=== PATIENT | female | born 1960 | race Caucasian/White ===

== ENCOUNTER 2017-03-14 14:51 | Inpatient (IN) | payer BC ==
[~2017-03-14] VITALS: Ht 160 cm; Wt 55.8 kg
[2017-03-14] MEDS ORDERED: QUETIAPINE FUMA25 MG ORAL (14:56)
[2017-03-14 14:59] VITALS: BP 87/59
[2017-03-14] MEDS ORDERED: Naloxone 1mg/ml 2ml IVP ONE (15:30)
[2017-03-14 16:17] LABS: MEAN CORPUSCULAR HEMOGLOBIN 29.2 PG (27.0-31.0); MEAN CORPUSCULAR HGB CONC 29.9 G/DL (32.0-36.0); MEAN CORPUSCULAR VOLUME 98 FL (80-99); MEAN PLATELET VOLUME 6.3 FL (6.5-10.1); PLATELET COUNT 199 K/UL (150-450); RED BLOOD COUNT 4.48 M/UL (4.20-5.40); RED CELL DISTRIBUTION WIDTH 13.5 % (11.6-14.8); WHITE BLOOD COUNT 16.8 K/UL (4.8-10.8)
[2017-03-14 16:19] LABS: LYMPHOCYTES % (AUTO) 3.4 % (20.0-45.0); MONOCYTES % (AUTO) 6.3 % (1.0-10.0); NEUTROPHILS % (AUTO) 89.5 % (45.0-75.0)
[2017-03-14 16:20] LABS: BASOPHILS % (AUTO) 0.7 % (0.0-2.0); EOSINOPHILS % (AUTO) 0.1 % (0.0-3.0)
[2017-03-14 16:30] LABS: ALANINE AMINOTRANSFERASE 93 U/L (12-78); ANION GAP 13 mmol/L (5-15); ASPARTATE AMINO TRANSFERASE 107 U/L (15-37); CALCIUM 8.2 MG/DL (8.5-10.1); CARBON DIOXIDE 24 MMOL/L (21-32); CHLORIDE 103 MMOL/L (98-107); CREATININE 1.7 MG/DL (0.55-1.30); GLOMERULAR FILTRATION RATE 31.3 mL/min (>60); POTASSIUM 3.6 MMOL/L (3.5-5.1); SODIUM 140 MMOL/L (136-145); TOTAL PROTEIN 7.1 G/DL (6.4-8.2)
[2017-03-14 16:32] LABS: ALCOHOL < 3 mg/dL
[2017-03-14 16:33] LABS: ACETAMINOPHEN < 2 MCG/ML (10-30)
--- NOTE | 2017-03-14 17:01 | Diagnostic Imaging Report ---
Indication: The mental status Technique: Contiguous 5 mm thick transaxial imaging of the head obtained in a Siemens Sensation [address] scanner. Soft tissue and bone windows generated. Automatic Exposure Control was utilized. Total Dose length Product (DLP): [address] Dose Index Volume (CTDIvol): 70.38, 0.15 mGy Comparison: none Findings: The size and configuration of the cortical sulci, basal cisterns, and ventricles are within normal limits for age. There is no mass effect, midline shift, or edema identified. There is no evidence of acute hemorrhage or abnormal intra-axial or extra-axial fluid collections. The bones and soft tissues are unremarkable. Impression: No mass effect, edema or acute bleed. The CT scanner at [facility] is accredited by the [employer] and the scans are performed using dose optimization techniques as appropriate to a performed exam including Automatic Exposure control.
--- NOTE | 2017-03-14 17:12 | Emergency Room Report ---
History of Present Illness General Chief Complaint: Overdose Source: Patient, EMS Present Illness HPI 56-year-old female to ED for evaluation. Per EMS patient was found down on the street and green [employer] specialist 911. Friend told in the one that patient used heroin today. Patient given Narcan x2. Upon arrival patient is more awake but still lethargic. Admits to heroin use. Denies any other drug use. Denies any chest pain or shortness of breath. Denies any headache. No other aggravating relieving factors. Denies any other associated symptoms Allergies: Coded Allergies: No Known Allergies (Unverified , 03/14/17) Patient History Past Medical History: none Past Surgical History: none Pertinent Family History: none Social History: Reports: drug use, Denies: smoking, alcohol use Now: No Immunizations: UTD Reviewed Nursing Documentation: PMH: Agreed, PSxH: Agreed Nursing Documentation-PMH Past Medical History: No History, Except For History Of Psychiatric Problem: Yes Review of Systems All Other Systems: negative except mentioned in HPI Physical Exam Vital Signs Date Time Temp Pulse Resp B/P (MAP) Pulse Ox O2 Delivery O2 Flow Rate FiO2 03/14/17 14:43 96.3 82 16 146/94 99 Room Air 03/14/17 14:59 15.0 Sp02 EP Interpretation: reviewed, normal General Appearance: GCS 15, non-toxic, lethargic Head: normocephalic, atraumatic Eyes: bilateral eye normal inspection, bilateral eye PERRL ENT: hearing grossly normal, normal pharynx, no angioedema, normal voice Neck: full range of motion, supple/symm/no masses Respiratory: chest non-tender, lungs clear, normal breath sounds, speaking full sentences Cardiovascular #1: regular rate, rhythm, no edema Cardiovascular #2: 2+ carotid (R), 2+ carotid (L), 2+ radial (R), 2+ radial (L) , 2+ dorsalis pedis (R), 2+ dorsalis pedis (L) Gastrointestinal: normal bowel sounds, non tender, soft, non-distended, no guarding, no rebound Rectal: deferred Genitourinary: normal inspection, no CVA tenderness Musculoskeletal: back normal, gait/station normal, normal range of motion, non- tender Neurologic: other - lethargic Psychiatric: other Reflexes: 3+ bicep (R), 3+ bicep (L), 3+ tricep (R), 3+ tricep (L), 3+ knee (R) , 3+ knee (L) Skin: normal color, no rash, warm/dry, well hydrated Lymphatic: no adenopathy Medical Decision Making Diagnostic Impression: Primary Impression: Drug overdose Qualified Codes: T50.901A - Poisoning by unspecified drugs, medicaments and biological substances, accidental (unintentional), initial encounter ER Course Hospital Course 56-year-old female presents to ED with altered mental status. found down, admitted to heroin Differential diagnoses include: overdose, alcohol toxicity, intracranial injury Clinical course She placed on stretcher. On electronic device monitor. After initial history and physical ordered labs, IV fluids, narcan, CT brain. Labs reviewed-electrolytes okay, noted leukocytosis, hemoglobin/hematocrit stable, Utox + multiple substances CT brain shows no acute pathology Patient is more awake but remains lethargic. O2 saturations low on room air, requiring oxygen. I do not believe patient can be safely discharged at this time case discussed with Dr. Mcdonald and he agreed to accept the patient to his service for further care and support i. I feel this is a highly complex case requiring extensive working including EKG/Rhythm strip, Xray/CT/US, Blood/urine lab work, repeat exams while in ED, and administration of strong opiates/narcotics for pain control, admission to hospital or close patient follow up. Diagnosis - drug overdose Admitted to telemetry in serious condition Labs Test 03/14/17 15:45 03/14/17 16:50 White Blood Count 16.8 K/UL (4.8-10.8) Red Blood Count 4.48 M/UL (4.20-5.40) Hemoglobin 13.1 G/DL (12.0-16.0) Hematocrit 43.8 % (37.0-47.0) Mean Corpuscular Volume 98 FL (80-99) Mean Corpuscular Hemoglobin 29.2 PG (27.0-31.0) Mean Corpuscular Hemoglobin Concent 29.9 G/DL (32.0-36.0) Red Cell Distribution Width 13.5 % (11.6-14.8) Platelet Count 199 K/UL (150-450) Mean Platelet Volume 6.3 FL (6.5-10.1) Neutrophils (%) (Auto) 89.5 % (45.0-75.0) Lymphocytes (%) (Auto) 3.4 % (20.0-45.0) Monocytes (%) (Auto) 6.3 % (1.0-10.0) Eosinophils (%) (Auto) 0.1 % (0.0-3.0) Basophils (%) (Auto) 0.7 % (0.0-2.0) Sodium Level 140 MMOL/L (136-145) Potassium Level 3.6 MMOL/L (3.5-5.1) Chloride Level 103 MMOL/L (98-107) Carbon Dioxide Level 24 MMOL/L (21-32) Anion Gap 13 mmol/L (5-15) Blood Urea Nitrogen 19 mg/dL (7-18) Creatinine 1.7 MG/DL (0.55-1.30) Estimat Glomerular Filtration Rate 31.3 mL/min (>60) Glucose Level 140 MG/DL (74-106) Calcium Level 8.2 MG/DL (8.5-10.1) Total Bilirubin 0.3 MG/DL (0.2-1.0) Aspartate Amino Transf (AST/SGOT) 107 U/L (15-37) Alanine Aminotransferase (ALT/SGPT) 93 U/L (12-78) Alkaline Phosphatase 83 U/L (46-116) Total Protein 7.1 G/DL (6.4-8.2) Albumin 3.6 G/DL (3.4-5.0) Globulin 3.5 g/dL Albumin/Globulin Ratio 1.0 (1.0-2.7) Salicylates Level 1.8 ug/mL (2.8-20) Acetaminophen Level < 2 MCG/ML (10-30) Serum Alcohol < 3 mg/dL Urine Opiates Screen Negative (NEGATIVE) Urine Barbiturates Screen Negative (NEGATIVE) Phencyclidine (PCP) Screen Negative (NEGATIVE) Urine Amphetamines Screen Positive (NEGATIVE) Urine Benzodiazepines Screen Positive (NEGATIVE) Urine Cocaine Screen Positive (NEGATIVE) Urine Marijuana (THC) Screen Negative (NEGATIVE) CT/MRI/US Diagnostic Results CT/MRI/US Diagnostic Results : Imaging Test Ordered: CT head Impression no acute process Last Vital Signs Date Time Temp Pulse Resp B/P (MAP) Pulse Ox O2 Delivery O2 Flow Rate FiO2 03/14/17 14:59 78 22 Non-Rebreather 15.0 03/14/17 14:59 87/59 100 03/14/17 14:43 96.3 Status: improved Disposition: HOME, SELF-CARE Condition: Stable Referrals: NOT CHOSEN IPA/,REFERRING (PCP) BUZZ ARECHIGA M.D. Mar 14, 2017 17:12
[2017-03-14 17:23] VITALS: BP 125/80
[2017-03-14] MEDS ORDERED: Albuterol/Ipratropium 3ml neb HHN PRN (19:30)
[2017-03-14] MEDS ORDERED: Promethazine/Codeine 5ml UD ORAL PRN (19:30)
[2017-03-14] MEDS ORDERED: Miralax 17gm pkt ORAL PRN (19:30)
[2017-03-14] MEDS ORDERED: Mylanta II UD 30ml ORAL PRN (19:30)
[2017-03-14] MEDS ORDERED: Nitroglycerin Subl 0.4mg tab SL PRN (19:30)
[2017-03-14 19:55] VITALS: BP 111/76
[2017-03-14 20:00] VITALS: BP 135/74
[2017-03-14] MEDS ORDERED: Cefepime HCl 1 GM in D5W 55 ML IV SCH (21:00)
[2017-03-14 21:01] VITALS: BP 114/72
[2017-03-14 21:25] VITALS: BP 124/86
[2017-03-14] MEDS ORDERED: Vancomycin 1250mg/D5W 250ml 250 ML IVPB SCH (21:30)
[2017-03-14] MEDS: Heparin 5000 units/ml inj SUBQ SCH (21:41)
[2017-03-15] VITALS: BP 94/66
[2017-03-15] MEDS ORDERED: SEROQUEL200 MG ORAL (01:26)
[2017-03-15 04:00] VITALS: BP 102/60
[2017-03-15 08:00] VITALS: BP 116/60
[2017-03-15 08:51] LABS: BASOPHILS % (AUTO) 0.5 % (0.0-2.0); EOSINOPHILS % (AUTO) 1.6 % (0.0-3.0); LYMPHOCYTES % (AUTO) 23.4 % (20.0-45.0); MEAN CORPUSCULAR HEMOGLOBIN 30.1 PG (27.0-31.0); MEAN CORPUSCULAR HGB CONC 31.3 G/DL (32.0-36.0); MEAN CORPUSCULAR VOLUME 96 FL (80-99); MEAN PLATELET VOLUME 6.6 FL (6.5-10.1); MONOCYTES % (AUTO) 9.1 % (1.0-10.0); NEUTROPHILS % (AUTO) 65.3 % (45.0-75.0); PLATELET COUNT 188 K/UL (150-450); RED BLOOD COUNT 3.58 M/UL (4.20-5.40); RED CELL DISTRIBUTION WIDTH 13.3 % (11.6-14.8); WHITE BLOOD COUNT 8.5 K/UL (4.8-10.8)
[2017-03-15] MEDS: Heparin 5000 units/ml inj SUBQ SCH (09:00)
[2017-03-15 09:04] LABS: ANION GAP 9 mmol/L (5-15); CALCIUM 8.2 MG/DL (8.5-10.1); CARBON DIOXIDE 27 MMOL/L (21-32); CHLORIDE 103 MMOL/L (98-107); CREATININE 0.9 MG/DL (0.55-1.30); GLOMERULAR FILTRATION RATE > 60 mL/min (>60); PHOSPHORUS 2.8 MG/DL (2.5-4.9); POTASSIUM 3.6 MMOL/L (3.5-5.1); SODIUM 139 MMOL/L (136-145)
--- NOTE | 2017-03-15 11:25 | Consultation ---
Consult Note Consult Note id dic # [id number] SUSANA ENRIQUEZ M.D. Mar 15, 2017 11:25
[2017-03-15] MEDS ORDERED: NS 275ml ONE (11:31)
[2017-03-15] MEDS ORDERED: Tubing IV Secondary IV ONE (11:31)
[2017-03-15] MEDS ORDERED: Vancomycin 1gm/D5W 275ml IVPB SCH ×2 (21:00)
--- NOTE | 2017-03-15 22:45 | Consultation ---
DATE OF CONSULTATION: 03/15/2017 INFECTIOUS DISEASES CONSULTATION CONSULTING PHYSICIAN: Emerson Lopez M.D. REFERRING PHYSICIAN: Monica Irizarry M.D. REASON FOR CONSULTATION: Evaluation of the patient for leukocytosis, possible sepsis, and antibiotic management. HISTORY OF PRESENT ILLNESS: The patient is a 56-year-old female, who was brought to this medical center due to heroin overdose. The patient's mental status has improved. Infectious Disease consultation has been requested for further evaluation of the patient's antibiotic management. PAST MEDICAL HISTORY: 1. History of heart attack in 2013. 2. History of hepatitis C that was treated according to the patient. ALLERGIES: No known drug allergies. MEDICATIONS: Intravenous vancomycin and cefepime. SOCIAL HISTORY: Significant for abusing heroin and history of IV drug abuse. FAMILY HISTORY: Noncontributory. REVIEW OF SYSTEMS: HEENT: No recent change in vision or hearing. PULMONARY: No cough or shortness of breath. CARDIOVASCULAR: No chest pain or palpitations. GASTROINTESTINAL/ABDOMEN: No nausea or vomiting. GENITOURINARY: No dysuria. PHYSICAL EXAMINATION: VITAL SIGNS: Temperature 98, pulse 856, respiratory rate 18, and blood pressure 116/60. HEENT: No pale conjunctivae. No icterus. NECK: No lymphadenopathy. CHEST: Clear. HEART: S1 and S2. ABDOMEN: Soft and nontender. EXTREMITIES: No cyanosis at this time. NEUROLOGIC: Awake and alert. LABORATORY AND DIAGNOSTIC DATA: Labs at the time of admission, the patient's white count was 16.8, now white count is 8.5, hemoglobin 10.8, and platelets 188. BUN 15 and creatinine 0.9. AST and ALT mildly elevated. Head CT scan is unremarkable. Sputum culture is pending. ASSESSMENT: 1. Leukocytosis due to acute stress. 2. History of intravenous drug abuse, however, the patient has no fever to indicate any evidence of bacteremia. 3. Mild transaminitis, rule out hepatitis C or hepatitis B. 4. History of human immunodeficiency virus test negative in the past. 5. History of hepatitis C treatment with clearance. PLAN: 1. We will discontinue all antibiotics. 2. Monitor CBC. 3. Monitor BMP. 4. We will send blood culture. 5. We will check her hepatitis panel and hepatitis C PCR. 6. Based on the patient's clinical course and labs, we will do further recommendations. Thank you, Dr. Irizarry, for allowing me to participate in the care of this patient. I will follow the patient with your during this hospitalization. Emerson Lopez M.D. DR: MARYSOL JOB#: [id number] CC:
--- NOTE | 2017-03-18 10:54 | Discharge Summary ---
Discharge Summary Hospital Course Date of Admission Mar 14, 2017 at 18:10 Date of Discharge Mar 15, 2017 at 12:20 Admitting Diagnosis overdose/dehydration HPI Millie Negron is a 56 year old female who was admitted on Mar 14, 2017 at 18 :10 for Overdose,Dehydration Hospital Course dc summary #[id number] Discharge Discharge Disposition Patient eloped Discharge Diagnoses: Discharge Instructions Discharge Instructions Special Instructions I have been assigned to complete a D/C Summary on this account. I was not involved in the patient management Jenna Lao NP (Vanchtein) Mar 18, 2017 10:53
--- NOTE | 2017-03-18 20:46 | Discharge Summary 2 SIG ---
DATE OF ADMISSION: 03/14/2017 DATE OF ELOPEMENT: 03/15/2017 REASON FOR ADMISSION: 56-year-old female was found unresponsive on the street. Paramedics were called. Friend informed paramedics that the patient was using heroin that day. The patient was given Narcan x2. Upon arrival to ED, the patient was more awake, but still lethargic. The patient admitted to heroin use. She denied chest pain or shortness of breath. She denied headache. The patient without any significant past medical history. Workup in the emergency room revealed WBC -16.8, BUN -19, and creatinine -1.7. AST -107 and ALT -93. CT of the head revealed no acute intracranial pathology. Urine toxicology screen was positive for amphetamine, benzodiazepine, and cocaine. Serum alcohol level, Tylenol level and salicylate levels were all within normal limits. The patient was admitted for drug overdose and leukocytosis. HOSPITAL COURSE: The patient was admitted. The patient was started on the IV hydration. The patient was started on empiric antibiotic due to leukocytosis. ID consult was requested. Mental status was closely monitored. Renal parameters and electrolytes were closely monitored. Nephrotoxics were avoided. ID seen and evaluated the patient and stated that leukocytosis was likely secondary to acute stress. He discontinued all antibiotics. Next day, renal parameters down to normal. Leukocytosis resolved. The patient afebrile. Supplemental oxygen provided as needed to keep saturation above 92%. DVT prophylaxis provided. Pulmonary toilet was on the standby. Pulse oximetry was stable on room air. Mental status returned to baseline. Hepatitis panel was ordered to rule out hepatitis B or C. The patient with apparently history of hepatitis C, which was treated according the patient and resolved. Young male came to see the patient with food from the cafeteria and in about an hour, the patient and her visitor were no where to be found. [employer] was notified about patient's elopement. FINAL DIAGNOSES: 1. Drug overdose, 2. Polysubstance abuse. 3. Leukocytosis likely secondary to acute stress. 4. Transaminitis. Nicho Mcdonald M.D. I have been assigned to dictate discharge summary on this account and I was not involved in the patient's management. Jenna BishopJammie bull DR: RYAN JOB#: [id number] CC: EUNICE
--- NOTE | 2017-03-24 16:15 | Cardiology Report ---
APPROVED REPORT EKG Measurement Heart [id number] Normal sinus rhythm Nonspecific ST and T wave abnormality Prolonged QT Abnormal ECG
== END 2017-03-15 12:20 | disposition left against medical advice (07) | DRG 918 ==
LOC: EDBD 14:51 → EMR 15:30 → EDBD 18:10 → 2E 18:10 → EDBEDREQ 18:39 → 2E 21:33
DX: T50.991A Poisoning by other drugs, medicaments and biological substances, accidental (unintentional), initial encounter (principal); Z86.74 Personal history of sudden cardiac arrest; F14.10 Cocaine abuse, uncomplicated; R41.82 Altered mental status, unspecified; E86.0 Dehydration; R74.0 Nonspecific elevation of levels of transaminase and lactic acid dehydrogenase [LDH]; Z86.19 Personal history of other infectious and parasitic diseases; F11.10 Opioid abuse, uncomplicated
CPT/HCPCS: 36415; 70450; 80053; 80069; 80307; 80329; 85025; 87081; 93005; 94664; 94760; 99285; J2405